=== PATIENT | female | born 1960 | race Two or more races ===

== ENCOUNTER 2025-02-18 17:40 | Inpatient (IN) | payer OTHER, SELFPAY ==
[2025-02-18] VITALS (10 sets, daily range): BP systolic 113–137; BP diastolic 72–85; BMI 26.6
[2025-02-18] MEDS: LOW STRENGTH ASPIRIN 81 MG PO (12:51)
[2025-02-18 12:53] LABS: Glucose - Point of Care 117 mg/dl (70-99)
--- NOTE | 2025-02-18 15:41 | ITS.CL.CATH ---
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
Cardiac Catheterization
Procedure Report:
LEFT HEART CATHETERIZATION
Date of Procedure: February 18, 2025
Procedures performed:
1: Coronary angiography
2: Left ventriculography
Primary Care Physician: Dr. Baylee Mason
Primary Resident Care Manager: Dr. Kyra Arias
INDICATION: The patient is a 64-year-old woman with past medical history of LAD stenting in 2017 in the setting of possible scad who presents with a chest pain syndrome and rules in for a small non-STEMI. Echocardiography performed yesterday at
[facility] showed an LAD territory wall motion abnormality. She has been chest pain-free for over 24 hours.
ACCESS: The patient was prepped and draped in usual sterile fashion. A 5 Irish sheath was placed in the right radial artery using the Seldinger over the wire technique.
HEMODYNAMIC FINDINGS (mmHg):
LV(s/d,EDP): 144/7, 14
Ao(s/d,m): 144/85, 108
ANGIOGRAPHIC FINDINGS:
Single-plane Left Ventriculography in QUINONES Projection: Distal anterior, apical, and inferoapical akinesis. Typical QUINONES appearance of a apical Takotsubo stress cardiomyopathy. No significant mitral regurgitation. Overall mild LV systolic
dysfunction with a visually estimated ejection fraction of 45 to 50%.
Coronary Angiography:
Dominance: Right
Left Main: Short, normal.
Left Anterior Descending: The left anterior descending artery is a medium caliber vessel that gives rise to 2 major diagonal branches. The mid LAD has a long widely patent previously placed stent. There is normal distal flow in all vessels which
are otherwise angiographically normal.
Left Circumflex: The left circumflex is a medium caliber nondominant system that gives rise to 3 major obtuse marginal branches. These vessels are angiographically normal with normal flow.
Right Coronary: The right coronary artery is a medium caliber dominant vessel that gives rise to a medium caliber posterior descending artery and small posterior left ventricular branch system. These vessels are normal with normal flow.
Fluoroscopy Time (min): 5.0
Radiation Dose (mGy): 387
DAP (Gy.cm2): 20
Closure device: None. A TR band was applied for hemostasis at the right wrist.
Complications: None.
ASSESSMENT:
1: No clear evidence of ACS with a widely patent previously placed LAD stent and normal flow in all vessels.
2: Left ventricular wall motion abnormality suspicious for typical apical Takotsubo stress cardiomyopathy.
3: No significant mitral regurgitation.
4: Well compensated left ventricular filling pressures.
CONCLUSIONS and RECOMMENDATIONS:
1: Continue medical therapy for hypertension and post drug-eluting stent with telemetry monitoring.
2: Clinical follow-up is planned.
Venecia Cat M.D.
Copy to: Dr. Baylee Mason
--- NOTE | 2025-02-18 16:34 | CM ---
Chart reviewed. Patient is independent of ADLS, lives with her in a 2 [address], 2 [address]RIQUE, 0 DME. Plan is for the patient to return home. CM to follow
[2025-02-18] MEDS: LIPITOR 40 MG PO (18:03)
[2025-02-18] MEDS: COREG 12.5 MG PO (19:16)
--- NOTE | 2025-02-18 21:38 | PTCARENOTE ---
Assumed care of patient at change of shift w/ spouse at bedside. Pt AAOx3, Tele monitor shows NSR, HR in the 60's at rest. Denies any chest pain or SOB at this time. Right radial dressing intact, no hematoma present at this time. Educated pt in
regards to activity restrictions, verbalized understanding. Pt aware of POC, call wright in reach.
[2025-02-19 04:15] VITALS: BP 101/62
[2025-02-19 08:03] VITALS: BP 126/42
[2025-02-19] MEDS: LOW STRENGTH ASPIRIN 81 MG PO (09:07)
[2025-02-19] MEDS: COREG 12.5 MG PO (09:07)
[2025-02-19] MEDS: FLUSH (NSS) 1 FLUSH IV (09:07)
--- NOTE | 2025-02-19 09:49 | PTCARENOTE ---
Patient denies any chest pain, right radial site is dry and intact with palpable radial pulse and no signs of hematoma. Patient seen by Dr. Cat and will be discharged today, EKG done as ordered.
--- NOTE | 2025-02-19 09:53 | W.PN.CARDCBS ---
Addendum entered and electronically signed by Supa Gipson MD 02/19/25 12:23:
I saw and examined the patient on morning rounds.
The Bow Stapler's note was reviewed and I agree with the note.
Comment: Briefly, 64-year-old woman past medical history of CAD with prior PCI in [address] [facility] with chest discomfort on 02/17/2025. Troponin was elevated and she was treated for NSTEMI with heparin drip. Echo there
with low normal LVEF 50% and wall motion abnormalities of the apical segments. Transferred to [facility] for left heart catheterization on 02/18/2025 which showed widely patent LAD stent and otherwise nonobstructive CAD. Overall this
was thought to be most consistent with Takotsubo cardiomyopathy.
At the time of my evaluation this morning patient was resting comfortably with no further chest discomfort
Telemetry reviewed showing normal sinus rhythm
No evidence of decompensated heart failure based on physical exam
With concern for mild LV dysfunction recommend discharging on Coreg and losartan
Continue aspirin and high intensity statin given history of CAD
Stable for discharge from my perspective
She will follow-up with her primary mitigation supervisor at [facility]
Addendum entered and electronically signed by eJwell Fay PA-C 02/19/25 10:43:
[id number]
Original Note:
Today's Communication / Plan
-
D/C to home today
Impression / Plan
-
PCP Mechelle Hunter PA-C
Cardiology: Dr. Kyra Monae at [facility]
Impression:
Admitted to [facility] with chest pain 02/17/2025
Transferred to [facility] for cardiac cath for possible NSTEMI 02/18/2025
No clear evidence of ACS, widely patent previously placed LAD stent, possible Takotsubo CM by cardiac cath 02/19/2025
CAD
s/p LAD PCI in the setting of possible CAD 2017
Widely patent previously placed LAD stent and otherwise nonobstructive CAD by cardiac cath 02/18/2025
HTN
Hyperlipidemia
Prediabetes
Labs at [facility] 02/18/2025: Hgb 15.1, WBC 6.47, PLT 232,000, BUN 9, creatinine 0.54, total cholesterol 145, HDL 53, LDL 75
Echo 02/17/2025: [facility] study, EF 50%, mid inferolateral, apical anterior, apical septal, apical inferior, apical lateral and apex are akinetic, normal RV size and function, mild MR, mild TR
Plan:
-Patient was brought by ambulance to [facility] with complaints of chest pain on 02/17/2025. Patient was standing in her kitchen and cooking at 3 PM when the pain started described as a cramping sensation in her chest followed by diaphoresis. Prehospital
STEMI alert was called, but following review with [facility] cardiology that was canceled and instead there was concern given history of NSTEMI and possible scad that prompted an LAD PCI back in 2017. Additionally patient with prediabetes and
electronic cigarette use. Troponin assay at [facility] was greater than 750. Patient placed on heparin gtt and then had echo that showed multiple areas of hypokinesis and so patient transferred to [facility] for cardiac cath.
-Over 40 pages of records from [facility] obtained, reviewed and summarized above by me
-Patient being managed as likely Takotsubo CM based on cardiac catheter results from 02/19/2025
-Outpatient dose of Coreg 12.5 mg twice daily has been continued
-Outpatient dose of losartan 12.5 mg daily has been continued
-Outpatient dose of aspirin 81 mg daily has been continued. No indication for DAPT given nonobstructive CAD and patent previously placed stent by cardiac cath 02/18/2025
-EF 50% with WMA concerning for Takotsubo CM by echo at [facility] on 02/17/2025
-LDL 75 and outpatient dose of atorvastatin 40 mg every other day due to daily statin intolerance has been continued
-Check ECG, ordered by me
-Patient is otherwise stable for discharge to home on 02/19/2025 and will follow up with Dr. Monae
Progress Note - Access Database Developer
Subjective
Date of Service: February 19, 2025
Feels well, no chest pain
Objective
Labs:
ECG pending
Vital Signs and I&O:
Vital Signs
Temp Pulse Resp BP Pulse Ox
97.4 F 69 18 126/42 100
02/19/25 08:01 02/19/25 08:03 02/19/25 08:01 02/19/25 08:03 02/19/25 08:03
Vital Signs
Temp Pulse Resp BP Pulse Ox
97.4 F 69 18 126/42 100
02/19/25 08:01 02/19/25 08:03 02/19/25 08:01 02/19/25 08:03 02/19/25 08:03
Intake & Output
02/17/25 02/18/25 02/19/25 02/20/25
06:59 06:59 06:59 06:59
Intake Total 120 / 120
Balance 120 / 120
Physical Exam
Physical Exam
GEN: AAOx3
HEENT: MMM
LUNGS: RA. No wheeze
CV: SR on tele
--- NOTE | 2025-02-19 10:33 | W.PN.UPDATE ---
Update Note
Progress Note Update
16:31 min over two calls spent on the phone with Dr. Monae's office to make follow up appt for continuity care of this patient.
--- NOTE | 2025-02-19 10:38 | W.DS.TRANS ---
DC Summary - Snake Charmer
-
Discharge Instructions:
Discharge Diagnosis/Procedures Takotsubo cardiomyopathy, patent previously
placed LAD stent and otherwise nonobstructive
coronary artery disease by cardiac cath 02/18/25
Diet Diabetic, Carb Controlled,Low Fat
Activity Other activity
Driving Restrictions No driving for 24 hours
Bathing Restrictions OK to Shower
Instructions:
Stand-Alone Forms: DC Instructions- Cath/EP Lab
Changes to Home Medications: No
Discharge Medications:
DC Medications w/original date entered in [employer]
aspirin 81 mg chewable tablet 81 mg PO DAILY Blood Clot Prevention/Tx 02/18/25
atorvastatin 40 mg tablet 40 mg PO Q48H High Cholesterol 02/18/25
carvedilol 12.5 mg tablet 12.5 mg PO BID Blood Pressure 02/18/25
losartan 25 mg tablet 12.5 mg PO 1500 Blood Pressure 02/18/25
metformin 500 mg tablet 500 mg PO NOON Diabetes 02/18/25
Held on 02/19/25. Instructions: Resume on 02/20/25. Resume your usual dose of metformin on .
Home Medication Changes
Pending Results: No
[2025-02-19 10:46] VITALS: BP 115/48
--- NOTE | 2025-02-19 11:39 | PTCARENOTE ---
Patient is pain free, right radial cath site is DISPATCHER RADIO. Patient cleared for discharge. Reviewed discharge instructions, post cath restrictions and follow up appointment with the patient and her and they state their understanding. Patient
discharged home with her .
== END 2025-02-19 11:40 | disposition home or self-care (01) | DRG 287 ==
LOC: IVU 17:40
PROVIDERS: ADMITTING PHYSICIAN Internal Medicine Interventional Cardiology; FAMILY PHYSICIAN Physician Assistant
PROC: B2151ZZ Fluoroscopy of Left Heart using Low Osmolar Contrast (ICD-10-PCS; 2025-02-18)
PROC: 4A023N7 Measurement of Cardiac Sampling and Pressure, Left Heart, Percutaneous Approach (ICD-10-PCS; 2025-02-18)
PROC: B2111ZZ Fluoroscopy of Multiple Coronary Arteries using Low Osmolar Contrast (ICD-10-PCS; 2025-02-18)
DX: I51.81 Takotsubo syndrome (principal); I25.10 Atherosclerotic heart disease of native coronary artery without angina pectoris; I10 Essential (primary) hypertension; E78.2 Mixed hyperlipidemia; E11.9 Type 2 diabetes mellitus without complications; Z95.5 Presence of coronary angioplasty implant and graft
CPT/HCPCS: 82962; 93005; 93458; C1894; Q9967